=== PATIENT | male | born 1955 | race Caucasian/White ===

== ENCOUNTER 2019-02-28 13:07 | Inpatient (IN) | payer MEDICARE, OTHER, BC ==
[2019-02-28] MEDS: SODIUM CHLORIDE 0.9% 1L BAG IV* (13:39)
[2019-02-28 13:43] LABS: ADD MAN DIFF? NO
[2019-02-28 13:46] LABS: BASOPHIL # 0.1 10^3/ul (0.0-0.1); BASOPHILS % 0.5 % (0.0-2.0); EOSINOPHILS % 0.3 % (0.0-7.0); HEMATOCRIT 45.1 % (42.0-52.0); HEMOGLOBIN 15.2 g/dl (14.0-18.0); LYMPHOCYTES # 1.6 10^3/ul (0.8-2.9); LYMPHOCYTES % 10.8 % (15.0-51.0); MEAN CORPUSCULAR HEMOGLOBIN 29.9 pg (29.0-33.0); MEAN CORPUSCULAR HGB CONC 33.7 g/dl (32.0-37.0); MEAN CORPUSCULAR VOLUME 88.6 fl (82.0-101.0); MEAN PLATELET VOLUME 12.5 fl (7.4-10.4); MONOCYTE # 1.2 10^3/ul (0.3-0.9); MONOCYTES % 7.9 % (0.0-11.0); NEUTROPHIL # 11.7 10^3/ul (1.6-7.5); NEUTROPHILS % 80.2 % (39.0-77.0); PLATELET COUNT 212 10^3/UL (140-415); RED BLOOD COUNT 5.09 10^6/ul (4.70-6.10); RED CELL DISTRIBUTION WIDTH 12.5 % (11.5-14.5)
[2019-02-28 13:46] LABS: WHITE BLOOD COUNT 14.6 10^3/ul (4.8-10.8)
[2019-02-28 14:07] LABS: ALANINE AMINOTRANSFERASE 33 IU/L (13-69); ALBUMIN 4.3 g/dl (3.3-4.9); ALBUMIN/GLOBULIN RATIO 1.48; ALKALINE PHOSPHATASE 78 IU/L (42-121); ANION GAP 11 (5-13); ASPARTATE AMINO TRANSFERASE 23 IU/L (15-46); BILIRUBIN,INDIRECT 1.6 mg/dl (0-1.1); BILIRUBIN,TOTAL 1.6 mg/dl (0.2-1.3); BLOOD UREA NITROGEN 11 mg/dl (7-20); CARBON DIOXIDE 27 mmol/L (21-31); CHLORIDE 97 mmol/L (97-110); CREATININE 0.79 mg/dl (0.61-1.24); Estimated GFR > 60 mL/min (>60); GLUCOSE 176 mg/dl (70-220); POTASSIUM 4.7 mmol/L (3.5-5.1); SODIUM 135 mmol/L (135-144); TOTAL PROTEIN 7.2 g/dl (6.1-8.1)
[2019-02-28 14:15] LABS: INR 1.02; PROTIME 13.5 Sec (11.9-14.9); PT RATIO 1.1
[2019-02-28 14:17] LABS: PARTIAL THROMBOPLASTIN TIME 23.5 Sec (23.0-35.0)
[2019-02-28 14:18] LABS: TROPONIN-I < 0.012 ng/ml (0.000-0.120)
[2019-02-28 15:26] LABS: ADD UMIC NO; UR ASCORBIC ACID NEGATIVE (NEGATIVE); UR BILIRUBIN (Dip) NEGATIVE (NEGATIVE); UR BLOOD (Dip) NEGATIVE (NEGATIVE); UR CLARITY CLEAR (CLEAR); UR COLOR AMBER (YELLOW); UR GLUCOSE (Dip) NEGATIVE (NEGATIVE); UR KETONES (Dip) TRACE mg/dL (NEGATIVE); UR LEUKOCYTE ESTERASE (Dip) NEGATIVE Leu/ul (NEGATIVE); UR NITRITE (Dip) NEGATIVE (NEGATIVE); UR TOTAL PROTEIN (Dip) NEGATIVE (NEGATIVE); UR UROBILINOGEN (Dip) NEGATIVE (NEGATIVE)
[2019-02-28 15:49] LABS: URINE BLOOD (Dip) POC Negative (NEGATIVE); URINE GLUCOSE (Dip) POC Negative (NEGATIVE); URINE KETONES (Dip) POC 1+ (NEGATIVE); URINE LEUKOCYTE EST (Dip) POC Negative (NEGATIVE); URINE NITRITE (Dip) POC Negative (NEGATIVE); URINE TOTAL PROTEIN POC Trace (NEGATIVE)
[2019-02-28] MEDS: SOD CHLORIDE 0.9% 1,000 ML IV (15:54)
[2019-02-28] MEDS: ASPIRIN 325 MG TAB PO (15:55)
[2019-02-28] MEDS: ACETAMINOPHEN 325 MG TAB PO (15:55)
[2019-02-28] MEDS: KETOROLAC 30 MG INJ IV (15:55)
[2019-02-28] MEDS: NORepinephrine 8MG/250 ML (PMX 250 ML IV (16:33)
[2019-02-28] MEDS: PIPER-TAZO 3.375 GM IV (PMX) 100 ML IVPB (16:36)
[2019-02-28] MEDS: VANCOMYCIN 1 GM (PMX) 250 ML IVPB (18:27)
[2019-02-28 19:43] LABS: LACTIC ACID 1.8 mmol/L (0.5-2.0)
[2019-02-28] MEDS ORDERED: BISACODYL (EC) 5 MG TAB PO (23:00)
[2019-02-28] MEDS ORDERED: DOCUSATE SODIUM 100 MG CAP PO (23:00)
[2019-02-28] MEDS ORDERED: VANCOMYCIN IV PER PHARMACY XX (23:00)
[2019-03-01] MEDS: PIPER-TAZO 3.375 GM IV (PMX) 100 ML IVPB ×5 (00:01→23:39)
[2019-03-01] MEDS: SOD CHLORIDE 0.9% 1,000 ML IV ×2 (00:01→22:33)
[2019-03-01] MEDS: HYDROmorphONE 0.5 MG/0.5 ML SYG IV (00:10)
[2019-03-01] MEDS: IOHEXOL 100 ML (00:31)
[2019-03-01] MEDS: SOD CHLORIDE 0.9% 100 ML (00:31)
[2019-03-01 03:00] LABS: CREATINE KINASE 81 IU/L (23-200)
[2019-03-01 03:13] LABS: CK INDEX 0.6; CK-MB 0.52 ng/ml (0.0-2.4); TROPONIN-I < 0.012 ng/ml (0.000-0.120)
[2019-03-01] MEDS: VANCOMYCIN 1.25 GM/NS 250 ML 250 ML IVPB ×2 (04:19→16:30)
[2019-03-01] MEDS: ONDANSETRON 4 MG INJ IV (04:58)
[2019-03-01 05:03] LABS: ADD MAN DIFF? NO
[2019-03-01 05:04] LABS: BASOPHIL # 0.1 10^3/ul (0.0-0.1); BASOPHILS % 0.4 % (0.0-2.0); EOSINOPHILS % 0.1 % (0.0-7.0); HEMATOCRIT 41.7 % (42.0-52.0); HEMOGLOBIN 13.5 g/dl (14.0-18.0); LYMPHOCYTES # 1.2 10^3/ul (0.8-2.9); LYMPHOCYTES % 7.8 % (15.0-51.0); MEAN CORPUSCULAR HEMOGLOBIN 29.5 pg (29.0-33.0); MEAN CORPUSCULAR HGB CONC 32.4 g/dl (32.0-37.0); MEAN CORPUSCULAR VOLUME 91.2 fl (82.0-101.0); MEAN PLATELET VOLUME 12.9 fl (7.4-10.4); MONOCYTE # 1.5 10^3/ul (0.3-0.9); MONOCYTES % 9.9 % (0.0-11.0); NEUTROPHIL # 12.2 10^3/ul (1.6-7.5); NEUTROPHILS % 81.5 % (39.0-77.0); PLATELET COUNT 200 10^3/UL (140-415); RED BLOOD COUNT 4.57 10^6/ul (4.70-6.10); RED CELL DISTRIBUTION WIDTH 13.2 % (11.5-14.5)
[2019-03-01] MEDS: ACETAMINOPHEN 650MG/20.3ML CUP PO (05:05)
[2019-03-01 05:43] LABS: ALANINE AMINOTRANSFERASE 47 IU/L (13-69); ALBUMIN 3.4 g/dl (3.3-4.9); ALBUMIN/GLOBULIN RATIO 1.36; ALKALINE PHOSPHATASE 59 IU/L (42-121); ANION GAP 10 (5-13); ASPARTATE AMINO TRANSFERASE 30 IU/L (15-46); BILIRUBIN,INDIRECT 2.1 mg/dl (0-1.1); BILIRUBIN,TOTAL 2.1 mg/dl (0.2-1.3); BLOOD UREA NITROGEN 14 mg/dl (7-20); CALCIUM 7.8 mg/dl (8.4-10.2); CARBON DIOXIDE 21 mmol/L (21-31); CHLORIDE 106 mmol/L (97-110); CHOL/HDL RATIO 4.5 RATIO; CHOLESTEROL 104 mg/dl (100-200); Estimated GFR > 60 mL/min (>60); GLUCOSE 166 mg/dl (70-220); HDL CHOLESTEROL 23 mg/dl (30-78); LDL CHOLESTEROL,CALCULATED 69 mg/dl; MAGNESIUM 1.7 mg/dl (1.7-2.5); POTASSIUM 4.5 mmol/L (3.5-5.1); SODIUM 137 mmol/L (135-144); TOTAL PROTEIN 5.9 g/dl (6.1-8.1); TRIGLYCERIDES 61 mg/dl (0-149)
[2019-03-01] MEDS ORDERED: METOPROLOL 5 MG INJ (06:20)
[2019-03-01] MEDS ORDERED: PHENYLephrine 20MG IN 250 ML 250 ML (06:21)
[2019-03-01] MEDS: METOPROLOL 5 MG INJ IV (06:26)
[2019-03-01] MEDS: PHENYLephrine 20MG IN 250 ML 250 ML IV (06:27)
[2019-03-01] MEDS: ADENOSINE 6 MG INJ IV (06:30)
[2019-03-01 07:13] LABS: HEMOGLOBIN A1C 6.8 % (0-5.9)
[2019-03-01 08:59] LABS: CREATINE KINASE 88 IU/L (23-200)
[2019-03-01 09:09] LABS: CK INDEX 0.8; CK-MB 0.69 ng/ml (0.0-2.4); TROPONIN-I 0.014 ng/ml (0.000-0.120)
[2019-03-01] MEDS: FAMOTIDINE 20 MG INJ IV ×2 (10:26→21:00)
[2019-03-01] MEDS: morphine 2 MG INJ IV ×2 (10:35→17:23)
[2019-03-02] MEDS: ACETAMINOPHEN 650MG/20.3ML CUP PO (00:10)
[2019-03-02 03:25] LABS: ADD MAN DIFF? NO
[2019-03-02 03:26] LABS: ABNORMAL IP MESSAGE 1; BASOPHIL # 0.1 10^3/ul (0.0-0.1); BASOPHILS % 0.5 % (0.0-2.0); HEMATOCRIT 38.4 % (42.0-52.0); HEMOGLOBIN 12.9 g/dl (14.0-18.0); LYMPHOCYTES # 1.3 10^3/ul (0.8-2.9); LYMPHOCYTES % 8.2 % (15.0-51.0); MEAN CORPUSCULAR HEMOGLOBIN 29.9 pg (29.0-33.0); MEAN CORPUSCULAR HGB CONC 33.6 g/dl (32.0-37.0); MEAN CORPUSCULAR VOLUME 89.1 fl (82.0-101.0); MEAN PLATELET VOLUME 13.1 fl (7.4-10.4); MONOCYTE # 1.8 10^3/ul (0.3-0.9); MONOCYTES % 11.3 % (0.0-11.0); NEUTROPHIL # 12.6 10^3/ul (1.6-7.5); NEUTROPHILS % 79.7 % (39.0-77.0); PLATELET COUNT 241 10^3/UL (140-415); POSITIVE DIFF @See below; RED BLOOD COUNT 4.31 10^6/ul (4.70-6.10); RED CELL DISTRIBUTION WIDTH 13.1 % (11.5-14.5)
[2019-03-02 03:26] LABS: WHITE BLOOD COUNT 15.9 10^3/ul (4.8-10.8)
[2019-03-02 03:44] LABS: ALANINE AMINOTRANSFERASE 62 IU/L (13-69); ALBUMIN 3.4 g/dl (3.3-4.9); ALKALINE PHOSPHATASE 54 IU/L (42-121); ANION GAP 8 (5-13); ASPARTATE AMINO TRANSFERASE 57 IU/L (15-46); BILIRUBIN,INDIRECT 2.1 mg/dl (0-1.1); BILIRUBIN,TOTAL 2.1 mg/dl (0.2-1.3); BLOOD UREA NITROGEN 16 mg/dl (7-20); CARBON DIOXIDE 24 mmol/L (21-31); CHLORIDE 105 mmol/L (97-110); CREATININE 0.72 mg/dl (0.61-1.24); Estimated GFR > 60 mL/min (>60); GLUCOSE 200 mg/dl (70-220); POTASSIUM 4.4 mmol/L (3.5-5.1); SODIUM 137 mmol/L (135-144)
[2019-03-02 03:51] LABS: VANCOMYCIN,TROUGH < 5.0 ug/ml (10.0-20.0)
[2019-03-02] MEDS: VANCOMYCIN 1.25 GM/NS 250 ML 250 ML IVPB (03:58)
[2019-03-02] MEDS: PIPER-TAZO 3.375 GM IV (PMX) 100 ML IVPB ×4 (06:26→23:26)
[2019-03-02] MEDS ORDERED: FENTAnyl 50 MCG/ML VIAL (07:42)
[2019-03-02] MEDS ORDERED: MIDAZOLAM 1 MG/ML 2 ML INJ (07:42)
[2019-03-02] MEDS ORDERED: PROPOFOL 20 ML (07:42)
[2019-03-02] MEDS: SOD CHLORIDE 0.9% 1,000 ML IV ×2 (08:10→17:31)
[2019-03-02] MEDS ORDERED: LIDOCAINE 1% (MDV) 20 ML INJ (08:47)
[2019-03-02] MEDS: SOD CHLORIDE 0.9% 500 ML (08:47)
[2019-03-02] MEDS ORDERED: IOHEXOL 300MG/ML 150 ML BTL (08:47)
[2019-03-02] MEDS ORDERED: HYDROmorphONE 0.5 MG/0.5 ML SYG IV ×2 (10:00)
[2019-03-02] MEDS ORDERED: FENTAnyl 50 MCG/ML VIAL IV ×3 (10:00)
[2019-03-02] MEDS: VANCOMYCIN 1.5 GM/NS 250 ML 250 ML IVPB (11:25)
[2019-03-02] MEDS: FAMOTIDINE 20 MG INJ IV ×2 (11:25→20:19)
[2019-03-02] MEDS ORDERED: DEXTROSE 50% 50 ML SYRINGE IV ×2 (13:00)
[2019-03-02] MEDS ORDERED: GLUCAGON 1 MG INJ IM (13:00)
[2019-03-02] MEDS ORDERED: GLUCOSE GEL 15 GRAM TUBE PO ×2 (13:00)
[2019-03-02] MEDS ORDERED: GLUCOSE GEL 15 GRAM TUBE BUCCAL (13:00)
[2019-03-02] MEDS: HYDROmorphONE 0.5 MG/0.5 ML SYG IV (13:33)
[2019-03-02] MEDS: INSULIN ASPART [NOVOLOG] 3 ML PEN SC ×2 (17:28→20:20)
[2019-03-02] MEDS: METOPROLOL 25 MG TAB PO (20:19)
[2019-03-03] MEDS: PIPER-TAZO 3.375 GM IV (PMX) 100 ML IVPB (05:03)
[2019-03-03 05:59] LABS: ADD MAN DIFF? NO
[2019-03-03 06:04] LABS: ABNORMAL IP MESSAGE 1; BASOPHIL # 0.1 10^3/ul (0.0-0.1); BASOPHILS % 0.5 % (0.0-2.0); EOSINOPHILS % 0.2 % (0.0-7.0); HEMATOCRIT 36.1 % (42.0-52.0); HEMOGLOBIN 12.1 g/dl (14.0-18.0); LYMPHOCYTES # 1.2 10^3/ul (0.8-2.9); LYMPHOCYTES % 9.3 % (15.0-51.0); MEAN CORPUSCULAR HGB CONC 33.5 g/dl (32.0-37.0); MEAN CORPUSCULAR VOLUME 89.6 fl (82.0-101.0); MEAN PLATELET VOLUME 13.5 fl (7.4-10.4); MONOCYTE # 1.4 10^3/ul (0.3-0.9); MONOCYTES % 10.9 % (0.0-11.0); NEUTROPHIL # 10.2 10^3/ul (1.6-7.5); NEUTROPHILS % 78.6 % (39.0-77.0); PLATELET COUNT 220 10^3/UL (140-415); POSITIVE DIFF @See below; RED BLOOD COUNT 4.03 10^6/ul (4.70-6.10); RED CELL DISTRIBUTION WIDTH 13.1 % (11.5-14.5)
[2019-03-03 06:04] LABS: WHITE BLOOD COUNT 12.9 10^3/ul (4.8-10.8)
[2019-03-03 06:36] LABS: ALANINE AMINOTRANSFERASE 75 IU/L (13-69); ALBUMIN 3.1 g/dl (3.3-4.9); ALBUMIN/GLOBULIN RATIO 1.03; ALKALINE PHOSPHATASE 57 IU/L (42-121); ANION GAP 6 (5-13); ASPARTATE AMINO TRANSFERASE 52 IU/L (15-46); BILIRUBIN,INDIRECT 1.6 mg/dl (0-1.1); BILIRUBIN,TOTAL 1.6 mg/dl (0.2-1.3); BLOOD UREA NITROGEN 14 mg/dl (7-20); CALCIUM 7.8 mg/dl (8.4-10.2); CARBON DIOXIDE 25 mmol/L (21-31); CHLORIDE 103 mmol/L (97-110); CREATININE 0.71 mg/dl (0.61-1.24); Estimated GFR > 60 mL/min (>60); GLUCOSE 137 mg/dl (70-220); POTASSIUM 3.5 mmol/L (3.5-5.1); SODIUM 134 mmol/L (135-144); TOTAL PROTEIN 6.1 g/dl (6.1-8.1)
[2019-03-03] MEDS: INSULIN ASPART [NOVOLOG] 3 ML PEN SC ×4 (08:00→21:00)
[2019-03-03] MEDS: POTASSIUM CHLORIDE (SR) 20 MEQ TAB PO (10:06)
[2019-03-03] MEDS: METOPROLOL 25 MG TAB PO ×2 (10:07→21:46)
[2019-03-03] MEDS: FAMOTIDINE 20 MG INJ IV (10:09)
[2019-03-03] MEDS: morphine 2 MG INJ IV (10:32)
[2019-03-03] MEDS ORDERED: CALCIUM CARBONATE 500 MG CHEW TAB PO (12:30)
[2019-03-03] MEDS: CIPROFLOXACIN 400MG/D5W 200 ML IVPB ×2 (13:05→20:37)
[2019-03-03] MEDS: metroNIDAZOLE 500 MG/NS (PMX) 100 ML IVPB ×3 (15:06→23:48)
[2019-03-03] MEDS: FUROSEMIDE 40 MG INJ IV (16:00)
[2019-03-03] MEDS: LACTOBACILLUS RHAMNOSUS CAP PO (17:29)
[2019-03-03] MEDS: ADENOSINE 6 MG INJ IV (19:49)
[2019-03-03] MEDS ORDERED: METOPROLOL 5 MG INJ (20:02)
[2019-03-03] MEDS: ACETAMINOPHEN 650MG/20.3ML CUP PO (20:04)
[2019-03-03] MEDS: METOPROLOL 5 MG INJ IV (20:05)
[2019-03-03] MEDS: MAGNESIUM SULFATE 2 GM/50 ML 50 ML IVPB (21:44)
[2019-03-04] MEDS: metroNIDAZOLE 500 MG/NS (PMX) 100 ML IVPB ×4 (05:32→23:08)
[2019-03-04] MEDS: PANTOPRAZOLE (EC) 40 MG TAB PO (05:32)
[2019-03-04 05:40] LABS: ADD MAN DIFF? NO
[2019-03-04 05:47] LABS: BASOPHIL # 0.1 10^3/ul (0.0-0.1); BASOPHILS % 0.7 % (0.0-2.0); EOSINOPHILS # 0.1 10^3/ul (0.0-0.5); EOSINOPHILS % 0.7 % (0.0-7.0); HEMATOCRIT 35.8 % (42.0-52.0); HEMOGLOBIN 12.2 g/dl (14.0-18.0); LYMPHOCYTES % 10.5 % (15.0-51.0); MEAN CORPUSCULAR HEMOGLOBIN 30.2 pg (29.0-33.0); MEAN CORPUSCULAR HGB CONC 34.1 g/dl (32.0-37.0); MEAN CORPUSCULAR VOLUME 88.6 fl (82.0-101.0); MEAN PLATELET VOLUME 12.8 fl (7.4-10.4); MONOCYTE # 1.1 10^3/ul (0.3-0.9); MONOCYTES % 11.7 % (0.0-11.0); NEUTROPHIL # 7.2 10^3/ul (1.6-7.5); NEUTROPHILS % 76.1 % (39.0-77.0); PLATELET COUNT 225 10^3/UL (140-415); RED BLOOD COUNT 4.04 10^6/ul (4.70-6.10); RED CELL DISTRIBUTION WIDTH 12.7 % (11.5-14.5)
[2019-03-04 05:47] LABS: WHITE BLOOD COUNT 9.5 10^3/ul (4.8-10.8)
[2019-03-04 06:54] LABS: ALANINE AMINOTRANSFERASE 79 IU/L (13-69); ALBUMIN/GLOBULIN RATIO 1.07; ALKALINE PHOSPHATASE 61 IU/L (42-121); ANION GAP 7 (5-13); ASPARTATE AMINO TRANSFERASE 45 IU/L (15-46); BILIRUBIN,INDIRECT 1.2 mg/dl (0-1.1); BILIRUBIN,TOTAL 1.2 mg/dl (0.2-1.3); BLOOD UREA NITROGEN 10 mg/dl (7-20); CALCIUM 8.1 mg/dl (8.4-10.2); CARBON DIOXIDE 28 mmol/L (21-31); CHLORIDE 104 mmol/L (97-110); CREATININE 0.59 mg/dl (0.61-1.24); Estimated GFR > 60 mL/min (>60); GLUCOSE 132 mg/dl (70-220); POTASSIUM 4.2 mmol/L (3.5-5.1); SODIUM 139 mmol/L (135-144); TOTAL PROTEIN 5.8 g/dl (6.1-8.1)
[2019-03-04 06:56] LABS: ANION GAP 7 (5-13); BLOOD UREA NITROGEN 10 mg/dl (7-20); CALCIUM 7.9 mg/dl (8.4-10.2); CARBON DIOXIDE 27 mmol/L (21-31); CHLORIDE 103 mmol/L (97-110); CREATININE 0.57 mg/dl (0.61-1.24); Estimated GFR > 60 mL/min (>60); GLUCOSE 136 mg/dl (70-220); MAGNESIUM 2.4 mg/dl (1.7-2.5); POTASSIUM 3.7 mmol/L (3.5-5.1); SODIUM 137 mmol/L (135-144)
[2019-03-04] MEDS: INSULIN ASPART [NOVOLOG] 3 ML PEN SC ×4 (07:56→20:55)
[2019-03-04] MEDS: LACTOBACILLUS RHAMNOSUS CAP PO ×3 (08:19→17:35)
[2019-03-04] MEDS: METOPROLOL 25 MG TAB PO ×2 (08:20→20:52)
[2019-03-04] MEDS: CIPROFLOXACIN 400MG/D5W 200 ML IVPB ×2 (08:20→20:52)
[2019-03-04 10:50] LABS: ADD MAN DIFF? NO
[2019-03-04 11:06] LABS: WHITE BLOOD COUNT 8.5 10^3/ul (4.8-10.8)
[2019-03-04 11:06] LABS: ABNORMAL IP MESSAGE 1; BASOPHIL # 0.1 10^3/ul (0.0-0.1); BASOPHILS % 0.6 % (0.0-2.0); EOSINOPHILS # 0.1 10^3/ul (0.0-0.5); EOSINOPHILS % 0.7 % (0.0-7.0); HEMATOCRIT 33.6 % (42.0-52.0); HEMOGLOBIN 11.5 g/dl (14.0-18.0); LYMPHOCYTES # 0.7 10^3/ul (0.8-2.9); LYMPHOCYTES % 8.3 % (15.0-51.0); MEAN CORPUSCULAR HEMOGLOBIN 30.1 pg (29.0-33.0); MEAN CORPUSCULAR HGB CONC 34.2 g/dl (32.0-37.0); MEAN PLATELET VOLUME 13.1 fl (7.4-10.4); MONOCYTES % 11.4 % (0.0-11.0); NEUTROPHIL # 6.7 10^3/ul (1.6-7.5); NEUTROPHILS % 78.5 % (39.0-77.0); PLATELET COUNT 227 10^3/UL (140-415); POSITIVE DIFF @See below; RED BLOOD COUNT 3.82 10^6/ul (4.70-6.10); RED CELL DISTRIBUTION WIDTH 12.8 % (11.5-14.5)
[2019-03-04 16:58] LABS: ADD MAN DIFF? NO
[2019-03-04 16:59] LABS: BASOPHIL # 0.1 10^3/ul (0.0-0.1); BASOPHILS % 0.7 % (0.0-2.0); EOSINOPHILS # 0.1 10^3/ul (0.0-0.5); EOSINOPHILS % 0.6 % (0.0-7.0); HEMATOCRIT 36.5 % (42.0-52.0); HEMOGLOBIN 12.2 g/dl (14.0-18.0); LYMPHOCYTES # 0.9 10^3/ul (0.8-2.9); LYMPHOCYTES % 10.3 % (15.0-51.0); MEAN CORPUSCULAR HEMOGLOBIN 29.5 pg (29.0-33.0); MEAN CORPUSCULAR HGB CONC 33.4 g/dl (32.0-37.0); MEAN CORPUSCULAR VOLUME 88.2 fl (82.0-101.0); MEAN PLATELET VOLUME 12.5 fl (7.4-10.4); MONOCYTE # 0.9 10^3/ul (0.3-0.9); MONOCYTES % 10.2 % (0.0-11.0); NEUTROPHILS % 77.9 % (39.0-77.0); PLATELET COUNT 234 10^3/UL (140-415); RED BLOOD COUNT 4.14 10^6/ul (4.70-6.10); RED CELL DISTRIBUTION WIDTH 12.7 % (11.5-14.5)
[2019-03-05] MEDS: metroNIDAZOLE 500 MG/NS (PMX) 100 ML IVPB (05:46)
[2019-03-05] MEDS: PANTOPRAZOLE (EC) 40 MG TAB PO (05:46)
[2019-03-05 06:25] LABS: ADD MAN DIFF? NO
[2019-03-05 06:37] LABS: BASOPHIL # 0.1 10^3/ul (0.0-0.1); BASOPHILS % 0.7 % (0.0-2.0); EOSINOPHILS # 0.1 10^3/ul (0.0-0.5); EOSINOPHILS % 1.4 % (0.0-7.0); HEMATOCRIT 35.9 % (42.0-52.0); HEMOGLOBIN 12.3 g/dl (14.0-18.0); LYMPHOCYTES % 11.4 % (15.0-51.0); MEAN CORPUSCULAR HEMOGLOBIN 29.8 pg (29.0-33.0); MEAN CORPUSCULAR HGB CONC 34.3 g/dl (32.0-37.0); MEAN CORPUSCULAR VOLUME 86.9 fl (82.0-101.0); MEAN PLATELET VOLUME 12.9 fl (7.4-10.4); MONOCYTES % 11.8 % (0.0-11.0); NEUTROPHIL # 6.2 10^3/ul (1.6-7.5); NEUTROPHILS % 74.3 % (39.0-77.0); PLATELET COUNT 256 10^3/UL (140-415); RED BLOOD COUNT 4.13 10^6/ul (4.70-6.10); RED CELL DISTRIBUTION WIDTH 12.5 % (11.5-14.5)
[2019-03-05 06:37] LABS: WHITE BLOOD COUNT 8.3 10^3/ul (4.8-10.8)
[2019-03-05 07:04] LABS: MAGNESIUM 1.9 mg/dl (1.7-2.5)
[2019-03-05 07:17] LABS: ALANINE AMINOTRANSFERASE 64 IU/L (13-69); ALKALINE PHOSPHATASE 63 IU/L (42-121); ANION GAP 8 (5-13); ASPARTATE AMINO TRANSFERASE 43 IU/L (15-46); BILIRUBIN,INDIRECT 0.9 mg/dl (0-1.1); BILIRUBIN,TOTAL 0.9 mg/dl (0.2-1.3); BLOOD UREA NITROGEN 8 mg/dl (7-20); CARBON DIOXIDE 26 mmol/L (21-31); CHLORIDE 103 mmol/L (97-110); CREATININE 0.58 mg/dl (0.61-1.24); Estimated GFR > 60 mL/min (>60); GLUCOSE 135 mg/dl (70-220); POTASSIUM 3.1 mmol/L (3.5-5.1); SODIUM 137 mmol/L (135-144)
[2019-03-05 07:38] LABS: HEPATITIS B SURFACE ANTIGEN NEGATIVE (NEGATIVE)
[2019-03-05 07:55] LABS: HEPATITIS C VIRAL ANTIBODY NEGATIVE (NEGATIVE)
[2019-03-05] MEDS: INSULIN ASPART [NOVOLOG] 3 ML PEN SC ×2 (08:00→11:42)
[2019-03-05] MEDS: CIPROFLOXACIN 400MG/D5W 200 ML IVPB (08:36)
[2019-03-05] MEDS: METOPROLOL 25 MG TAB PO (08:37)
[2019-03-05] MEDS: LACTOBACILLUS RHAMNOSUS CAP PO ×2 (08:37→11:37)
[2019-03-05] MEDS: POTASSIUM CHLORIDE (SR) 20 MEQ TAB PO (10:21)
[2019-03-05] MEDS: ACETAMINOPHEN 650MG/20.3ML CUP PO (11:47)
[2019-03-05] MEDS: metroNIDAZOLE 500 MG TAB PO (13:42)
[2019-03-05] MEDS ORDERED: CIPROFLOXACIN 500 MG TAB (13:47)
[2019-03-05] MEDS: CIPROFLOXACIN 500 MG TAB PO (13:51)
== END 2019-03-05 16:28 | disposition home health service (06) | DRG 871 ==
LOC: E/R 13:07 → 6WM 03-02 18:40 → ICU 19:47
PROVIDERS: Family Medicine
PROC: 0F9430Z Drainage of Gallbladder with Drainage Device, Percutaneous Approach (ICD-10-PCS; principal; 2019-03-02)
DX: A41.9 Sepsis, unspecified organism (principal); R65.21 Severe sepsis with septic shock; K81.0 Acute cholecystitis; I31.3 Pericardial effusion (noninflammatory); I47.1 Supraventricular tachycardia; M75.92 Shoulder lesion, unspecified, left shoulder; L40.50 Arthropathic psoriasis, unspecified; M06.9 Rheumatoid arthritis, unspecified; E11.9 Type 2 diabetes mellitus without complications; I10 Essential (primary) hypertension; R14.0 Abdominal distension (gaseous); R19.7 Diarrhea, unspecified; Q63.1 Lobulated, fused and horseshoe kidney
CPT/HCPCS: 36415; 71045; 71275; 73030-RT; 73050; 74018; 74177; 75984; 76705; 76937; 76942; 80048; 80053; 80061; 80202; 81003; 82550; 82553; 82962; 83036; 83605; 83735; 84443; 84484; 85025; 85610; 85730; 86803; 87040-91; 87081; 87086; 87340; 93005; 93306; 93308; 96365; 96375; 99285-25

== ENCOUNTER 2019-03-11 15:51 | Inpatient (IN) | payer MEDICARE, OTHER ==
[2019-03-11 17:07] LABS: ADD MAN DIFF? NO
[2019-03-11 17:08] LABS: BASOPHIL # 0.1 10^3/ul (0.0-0.1); BASOPHILS % 0.5 % (0.0-2.0); EOSINOPHILS # 0.1 10^3/ul (0.0-0.5); EOSINOPHILS % 0.4 % (0.0-7.0); HEMATOCRIT 39.7 % (42.0-52.0); HEMOGLOBIN 13.6 g/dl (14.0-18.0); LYMPHOCYTES # 1.4 10^3/ul (0.8-2.9); LYMPHOCYTES % 9.6 % (15.0-51.0); MEAN CORPUSCULAR HEMOGLOBIN 29.6 pg (29.0-33.0); MEAN CORPUSCULAR HGB CONC 34.3 g/dl (32.0-37.0); MEAN CORPUSCULAR VOLUME 86.3 fl (82.0-101.0); MEAN PLATELET VOLUME 12.1 fl (7.4-10.4); MONOCYTE # 1.3 10^3/ul (0.3-0.9); MONOCYTES % 8.7 % (0.0-11.0); NEUTROPHIL # 11.8 10^3/ul (1.6-7.5); NEUTROPHILS % 80.5 % (39.0-77.0); PLATELET COUNT 274 10^3/UL (140-415); RED CELL DISTRIBUTION WIDTH 12.5 % (11.5-14.5)
[2019-03-11 17:08] LABS: WHITE BLOOD COUNT 14.6 10^3/ul (4.8-10.8)
[2019-03-11] MEDS: ACETAMINOPHEN 325 MG TAB PO ×2 (17:09→23:01)
[2019-03-11] MEDS: SODIUM CHLORIDE 0.9% 1L BAG IV* (17:10)
[2019-03-11] MEDS: CEFTRIAXONE 1 GM/50 ML (PMX) 50 ML IVPB (17:10)
[2019-03-11] MEDS: PIPER-TAZO 3.375 GM IV (PMX) 100 ML IVPB (17:24)
[2019-03-11 17:26] LABS: ALANINE AMINOTRANSFERASE 46 IU/L (13-69); ALBUMIN 4.1 g/dl (3.3-4.9); ALBUMIN/GLOBULIN RATIO 1.24; ALKALINE PHOSPHATASE 97 IU/L (42-121); ANION GAP 12 (5-13); ASPARTATE AMINO TRANSFERASE 33 IU/L (15-46); BILIRUBIN,INDIRECT 0.6 mg/dl (0-1.1); BILIRUBIN,TOTAL 0.6 mg/dl (0.2-1.3); BLOOD UREA NITROGEN 10 mg/dl (7-20); CALCIUM 8.7 mg/dl (8.4-10.2); CARBON DIOXIDE 23 mmol/L (21-31); CHLORIDE 96 mmol/L (97-110); CREATININE 0.63 mg/dl (0.61-1.24); Estimated GFR > 60 mL/min (>60); GLUCOSE 160 mg/dl (70-220); POTASSIUM 4.5 mmol/L (3.5-5.1); SODIUM 131 mmol/L (135-144); TOTAL PROTEIN 7.4 g/dl (6.1-8.1)
[2019-03-11 17:28] LABS: INR 0.98; PROTIME 13.1 Sec (11.9-14.9)
[2019-03-11 17:29] LABS: PARTIAL THROMBOPLASTIN TIME 30.3 Sec (23.0-35.0)
[2019-03-11 17:34] LABS: ADD UMIC YES; UR ASCORBIC ACID NEGATIVE (NEGATIVE); UR BILIRUBIN (Dip) NEGATIVE (NEGATIVE); UR BLOOD (Dip) NEGATIVE (NEGATIVE); UR CLARITY CLEAR (CLEAR); UR COLOR AMBER (YELLOW); UR GLUCOSE (Dip) NEGATIVE (NEGATIVE); UR KETONES (Dip) NEGATIVE (NEGATIVE); UR LEUKOCYTE ESTERASE (Dip) TRACE Leu/ul (NEGATIVE); UR MUCUS MANY /HPF (NONE SEEN); UR NITRITE (Dip) NEGATIVE (NEGATIVE); UR RBC 1 /HPF (0-5); UR SPECIFIC GRAVITY (Dip) 1.023 (1.003-1.030); UR TOTAL PROTEIN (Dip) NEGATIVE (NEGATIVE); UR UROBILINOGEN (Dip) NEGATIVE (NEGATIVE); UR WBC 1 /HPF (0-5)
[2019-03-11 17:37] LABS: TROPONIN-I < 0.012 ng/ml (0.000-0.120)
[2019-03-11] MEDS ORDERED: SOD CHLORIDE 0.9% 1,000 ML IV (17:57)
[2019-03-11] MEDS ORDERED: ACETAMINOPHEN 325 MG TAB PO (18:00)
[2019-03-11] MEDS ORDERED: DOCUSATE SODIUM 100 MG CAP PO (18:00)
[2019-03-11] MEDS ORDERED: ALBUTEROL/IPRATROPIUM (NEB) 3 ML AMP HHN (18:00)
[2019-03-11] MEDS ORDERED: NACL 0.9% 3 ML SYG IV (18:00)
[2019-03-11] MEDS ORDERED: hydrALAzine 20 MG INJ IV (18:00)
[2019-03-11] MEDS ORDERED: ETANERCEPT XX (18:00)
[2019-03-11] MEDS ORDERED: MAGNESIUM HYDROXIDE 30ML CUP PO (18:00)
[2019-03-11] MEDS ORDERED: NITROGLYCERIN (SL) 0.4 MG TAB SL (18:00)
[2019-03-11] MEDS ORDERED: ONDANSETRON 4 MG INJ IV ×2 (18:00)
[2019-03-11] MEDS ORDERED: LORAZEPAM 2 MG INJ IV (18:00)
[2019-03-11] MEDS ORDERED: VANCOMYCIN IV PER PHARMACY XX (18:00)
[2019-03-11] MEDS: IOHEXOL 300MG/ML 30 ML BTL (18:03)
[2019-03-11] MEDS: SOD CHLORIDE 0.9% 100 ML (18:03)
[2019-03-11] MEDS: IOHEXOL 0 ML (18:03)
[2019-03-11 19:16] LABS: FREE T4 (FREE THYROXINE) 1.44 ng/dl (0.78-2.44)
[2019-03-11] MEDS ORDERED: GLUCOSE GEL 15 GRAM TUBE PO ×2 (19:30)
[2019-03-11] MEDS ORDERED: GLUCOSE GEL 15 GRAM TUBE BUCCAL (19:30)
[2019-03-11] MEDS ORDERED: DEXTROSE 50% 50 ML SYRINGE IV ×2 (19:30)
[2019-03-11] MEDS ORDERED: GLUCAGON 1 MG INJ IM (19:30)
[2019-03-11 20:02] LABS: LACTIC ACID 1.3 mmol/L (0.5-2.0)
[2019-03-11] MEDS: INSULIN ASPART [NOVOLOG] 3 ML PEN SC (21:00)
[2019-03-11] MEDS: METOPROLOL 25 MG TAB PO (21:00)
[2019-03-11] MEDS: CEFEPIME 2GM/50 ML (PMX) 50 ML IVPB (21:05)
[2019-03-11] MEDS: SOD CHLORIDE 0.9% 1,000 ML IV (21:06)
[2019-03-11 21:41] LABS: LACTIC ACID 1.9 mmol/L (0.5-2.0)
[2019-03-11] MEDS: VANCOMYCIN 1.5 GM/NS 250 ML 250 ML IVPB (22:09)
[2019-03-11 23:53] LABS: LACTIC ACID 1.6 mmol/L (0.5-2.0)
[2019-03-12] MEDS: INSULIN ASPART [NOVOLOG] 3 ML PEN SC ×6 (01:00→20:26)
[2019-03-12 01:36] LABS: LACTIC ACID 0.9 mmol/L (0.5-2.0)
[2019-03-12] MEDS: SOD CHLORIDE 0.9% 1,000 ML IV ×2 (03:59→07:51)
[2019-03-12] MEDS: CEFEPIME 2GM/50 ML (PMX) 50 ML IVPB ×2 (06:08→15:59)
[2019-03-12] MEDS: ACETAMINOPHEN 325 MG TAB PO ×2 (06:16→20:18)
[2019-03-12] MEDS: NITROGLYCERIN (SL) 0.4 MG TAB SL (06:47)
[2019-03-12] MEDS: morphine 2 MG INJ IV ×2 (07:06→15:04)
[2019-03-12] MEDS: SOD CHLORIDE 0.9% 500 ML IV (07:38)
[2019-03-12] MEDS: FISH OIL 1,000 MG CAP PO (08:09)
[2019-03-12] MEDS: METOPROLOL 25 MG TAB PO ×2 (08:09→20:19)
[2019-03-12] MEDS: VANCOMYCIN 1.25 GM/NS 250 ML 250 ML IVPB ×2 (08:44→20:18)
[2019-03-12 08:50] LABS: ADD MAN DIFF? NO
[2019-03-12 08:54] LABS: BASOPHIL # 0.1 10^3/ul (0.0-0.1); BASOPHILS % 0.5 % (0.0-2.0); EOSINOPHILS % 0.3 % (0.0-7.0); HEMATOCRIT 39.5 % (42.0-52.0); HEMOGLOBIN 13.1 g/dl (14.0-18.0); LYMPHOCYTES % 6.8 % (15.0-51.0); MEAN CORPUSCULAR HEMOGLOBIN 29.1 pg (29.0-33.0); MEAN CORPUSCULAR HGB CONC 33.2 g/dl (32.0-37.0); MEAN CORPUSCULAR VOLUME 87.8 fl (82.0-101.0); MEAN PLATELET VOLUME 12.2 fl (7.4-10.4); MONOCYTE # 1.4 10^3/ul (0.3-0.9); MONOCYTES % 8.9 % (0.0-11.0); NEUTROPHIL # 12.7 10^3/ul (1.6-7.5); NEUTROPHILS % 83.1 % (39.0-77.0); PLATELET COUNT 251 10^3/UL (140-415); RED CELL DISTRIBUTION WIDTH 12.6 % (11.5-14.5)
[2019-03-12 08:54] LABS: WHITE BLOOD COUNT 15.2 10^3/ul (4.8-10.8)
[2019-03-12 09:37] LABS: ANION GAP 10 (5-13); BLOOD UREA NITROGEN 7 mg/dl (7-20); CALCIUM 7.9 mg/dl (8.4-10.2); CARBON DIOXIDE 22 mmol/L (21-31); CHLORIDE 100 mmol/L (97-110); CREATININE 0.63 mg/dl (0.61-1.24); Estimated GFR > 60 mL/min (>60); GLUCOSE 126 mg/dl (70-220); MAGNESIUM 1.7 mg/dl (1.7-2.5); PHOSPHORUS 3.1 mg/dl (2.5-4.9); POTASSIUM 4.1 mmol/L (3.5-5.1); SODIUM 132 mmol/L (135-144)
[2019-03-12 09:40] LABS: CHOLESTEROL 79 mg/dl (100-200)
[2019-03-12 09:40] LABS: CHOL/HDL RATIO 3.7 RATIO; HDL CHOLESTEROL 21 mg/dl (30-78); LDL CHOLESTEROL,CALCULATED 46 mg/dl; TRIGLYCERIDES 61 mg/dl (0-149)
[2019-03-12 09:43] LABS: TROPONIN-I < 0.012 ng/ml (0.000-0.120)
[2019-03-12] MEDS ORDERED: BUPIVACAINE 0.5%/EPI (SDV) 30 ML INJ (12:58)
[2019-03-12] MEDS ORDERED: LIDOCAINE 1% (MPF) 30 ML INJ (12:58)
[2019-03-12] MEDS ORDERED: CEFAZOLIN 1 GM INJ (13:23)
[2019-03-12] MEDS ORDERED: MIDAZOLAM 1 MG/ML 2 ML INJ (13:23)
[2019-03-12] MEDS ORDERED: ROCURONIUM 50 MG INJ (13:23)
[2019-03-12] MEDS ORDERED: PROPOFOL 20 ML (13:23)
[2019-03-12] MEDS ORDERED: FENTAnyl 50 MCG/ML VIAL (13:23)
[2019-03-12] MEDS ORDERED: ROPIVACAINE 0.5 % 30 ML VIAL (13:25)
[2019-03-12] MEDS ORDERED: PIPER-TAZO 3.375 GM IV (PMX) 100 ML (13:41)
[2019-03-12] MEDS ORDERED: HETASTARCH 6% NACL 500 ML (13:57)
[2019-03-12] MEDS: BUPIVACAINE 0.25%/EPI (SDV) 30 ML INJ (13:58)
[2019-03-12] MEDS ORDERED: SUGAMMADEX SODIUM 200 MG/2 ML VIAL IV (14:14)
[2019-03-12] MEDS ORDERED: METOCLOPRAMIDE 10 MG INJ IV (14:30)
[2019-03-12] MEDS ORDERED: DIPHENHYDRAMINE 50 MG INJ IV (14:30)
[2019-03-12] MEDS ORDERED: EPHEDrine 25 MG/5 ML SYG IV (14:30)
[2019-03-12] MEDS ORDERED: ALBUMIN HUMAN 5% 250 ML IV (14:30)
[2019-03-12] MEDS ORDERED: LABETALOL HCL 20MG INJ IV (14:30)
[2019-03-12] MEDS ORDERED: HYDROmorphONE 1 MG/5 ML IV SYRINGE IV ×3 (14:30)
[2019-03-12] MEDS ORDERED: FENTAnyl 50 MCG/ML VIAL IV ×3 (14:30)
[2019-03-12] MEDS ORDERED: hydrALAzine 20 MG INJ IV (14:30)
[2019-03-12] MEDS ORDERED: OXYCODONE/ACETAMINOPHEN (5/325) TAB PO (14:30)
[2019-03-12] MEDS ORDERED: MEPERIDINE 25 MG INJ IV (14:30)
[2019-03-12] MEDS ORDERED: ONDANSETRON 4 MG INJ IV (14:30)
[2019-03-12] MEDS ORDERED: PHENYLephrine (100 MCG/ML) 10ML SYG (15:08)
[2019-03-12] MEDS: IPRATROPIUM (NEB) 0.5 MG/2.5 ML AMP HHN (21:47)
[2019-03-12] MEDS: LEVALBUTEROL (NEB) 1.25 MG/0.5 ML AMP HHN (21:47)
[2019-03-13] MEDS: CEFEPIME 2GM/50 ML (PMX) 50 ML IVPB ×3 (01:50→13:30)
[2019-03-13] MEDS: SOD CHLORIDE 0.9% 1,000 ML IV ×3 (01:53→18:46)
[2019-03-13] MEDS: morphine 2 MG INJ IV (06:13)
[2019-03-13 07:24] LABS: ADD MAN DIFF? NO
[2019-03-13] MEDS: INSULIN ASPART [NOVOLOG] 3 ML PEN SC ×4 (07:25→21:50)
[2019-03-13 07:33] LABS: WHITE BLOOD COUNT 12.1 10^3/ul (4.8-10.8)
[2019-03-13 07:33] LABS: BASOPHIL # 0.1 10^3/ul (0.0-0.1); BASOPHILS % 0.5 % (0.0-2.0); EOSINOPHILS # 0.1 10^3/ul (0.0-0.5); EOSINOPHILS % 0.5 % (0.0-7.0); HEMATOCRIT 36.3 % (42.0-52.0); LYMPHOCYTES # 1.1 10^3/ul (0.8-2.9); LYMPHOCYTES % 9.3 % (15.0-51.0); MEAN CORPUSCULAR HEMOGLOBIN 29.3 pg (29.0-33.0); MEAN CORPUSCULAR HGB CONC 33.1 g/dl (32.0-37.0); MEAN CORPUSCULAR VOLUME 88.8 fl (82.0-101.0); MEAN PLATELET VOLUME 12.4 fl (7.4-10.4); MONOCYTE # 1.1 10^3/ul (0.3-0.9); MONOCYTES % 8.9 % (0.0-11.0); NEUTROPHIL # 9.7 10^3/ul (1.6-7.5); NEUTROPHILS % 80.5 % (39.0-77.0); PLATELET COUNT 225 10^3/UL (140-415); RED BLOOD COUNT 4.09 10^6/ul (4.70-6.10); RED CELL DISTRIBUTION WIDTH 12.9 % (11.5-14.5)
[2019-03-13 07:57] LABS: CREATININE 0.57 mg/dl (0.61-1.24)
[2019-03-13 07:57] LABS: BLOOD UREA NITROGEN 7 mg/dl (7-20)
[2019-03-13 07:58] LABS: ANION GAP 6 (5-13); BLOOD UREA NITROGEN 8 mg/dl (7-20); CALCIUM 7.6 mg/dl (8.4-10.2); CARBON DIOXIDE 24 mmol/L (21-31); CHLORIDE 104 mmol/L (97-110); CREATININE 0.62 mg/dl (0.61-1.24); Estimated GFR > 60 mL/min (>60); GLUCOSE 120 mg/dl (70-220); POTASSIUM 4.3 mmol/L (3.5-5.1); SODIUM 134 mmol/L (135-144)
[2019-03-13] MEDS: METOPROLOL 25 MG TAB PO ×2 (08:12→20:23)
[2019-03-13] MEDS: FISH OIL 1,000 MG CAP PO (08:12)
[2019-03-13 08:14] LABS: VANCOMYCIN,TROUGH 9.2 ug/ml (10.0-20.0)
[2019-03-13] MEDS: VANCOMYCIN 1.25 GM/NS 250 ML 250 ML IVPB ×2 (08:55→21:46)
[2019-03-13] MEDS: HYDROCODONE/APAP (5/325) TAB PO (20:24)
[2019-03-13] MEDS: VANCOMYCIN 1.5 GM/NS 250 ML 250 ML IVPB (21:55)
[2019-03-14] MEDS: CEFEPIME 2GM/50 ML (PMX) 50 ML IVPB ×4 (00:10→23:45)
[2019-03-14] MEDS: SOD CHLORIDE 0.9% 1,000 ML IV (05:35)
[2019-03-14] MEDS ORDERED: DILTIAZEM 25 MG INJ (05:58)
[2019-03-14] MEDS: DILTIAZEM 25 MG INJ IV (06:17)
[2019-03-14 07:17] LABS: ADD MAN DIFF? NO
[2019-03-14] MEDS: INSULIN ASPART [NOVOLOG] 3 ML PEN SC ×4 (07:25→20:36)
[2019-03-14 07:31] LABS: WHITE BLOOD COUNT 14.2 10^3/ul (4.8-10.8)
[2019-03-14 07:31] LABS: BASOPHIL # 0.1 10^3/ul (0.0-0.1); BASOPHILS % 0.4 % (0.0-2.0); EOSINOPHILS # 0.1 10^3/ul (0.0-0.5); EOSINOPHILS % 0.8 % (0.0-7.0); HEMATOCRIT 38.4 % (42.0-52.0); HEMOGLOBIN 12.5 g/dl (14.0-18.0); LYMPHOCYTES # 1.3 10^3/ul (0.8-2.9); MEAN CORPUSCULAR HEMOGLOBIN 29.3 pg (29.0-33.0); MEAN CORPUSCULAR HGB CONC 32.6 g/dl (32.0-37.0); MEAN CORPUSCULAR VOLUME 89.9 fl (82.0-101.0); MEAN PLATELET VOLUME 12.4 fl (7.4-10.4); MONOCYTES % 6.8 % (0.0-11.0); NEUTROPHIL # 11.7 10^3/ul (1.6-7.5); NEUTROPHILS % 82.6 % (39.0-77.0); PLATELET COUNT 253 10^3/UL (140-415); RED BLOOD COUNT 4.27 10^6/ul (4.70-6.10); RED CELL DISTRIBUTION WIDTH 12.8 % (11.5-14.5)
[2019-03-14 07:59] LABS: ANION GAP 7 (5-13); BLOOD UREA NITROGEN 7 mg/dl (7-20); CALCIUM 7.8 mg/dl (8.4-10.2); CARBON DIOXIDE 26 mmol/L (21-31); CHLORIDE 100 mmol/L (97-110); CREATININE 0.67 mg/dl (0.61-1.24); Estimated GFR > 60 mL/min (>60); GLUCOSE 109 mg/dl (70-220); POTASSIUM 3.9 mmol/L (3.5-5.1); SODIUM 133 mmol/L (135-144)
[2019-03-14 08:02] LABS: ALANINE AMINOTRANSFERASE 32 IU/L (13-69); ALBUMIN 2.7 g/dl (3.3-4.9); ALKALINE PHOSPHATASE 83 IU/L (42-121); ASPARTATE AMINO TRANSFERASE 27 IU/L (15-46); BILIRUBIN,INDIRECT 1.1 mg/dl (0-1.1); BILIRUBIN,TOTAL 1.1 mg/dl (0.2-1.3); TOTAL PROTEIN 5.4 g/dl (6.1-8.1)
[2019-03-14] MEDS: FISH OIL 1,000 MG CAP PO (08:07)
[2019-03-14] MEDS: METOPROLOL 25 MG TAB PO (08:08)
[2019-03-14] MEDS: VANCOMYCIN 1.5 GM/NS 250 ML 250 ML IVPB ×2 (08:22→23:42)
[2019-03-14] MEDS: [UNRECOGNIZED DRUG - OTHER] XX ×2 (09:00→17:00)
[2019-03-14] MEDS: ACETAMINOPHEN 325 MG TAB PO (15:59)
[2019-03-14] MEDS ORDERED: GUAIFENESIN/DM 5ML CUP PO (17:00)
[2019-03-14] MEDS: ADENOSINE 6 MG INJ IV (17:05)
[2019-03-14 18:08] LABS: MAGNESIUM 1.7 mg/dl (1.7-2.5)
[2019-03-14 18:20] LABS: TROPONIN-I 0.013 ng/ml (0.000-0.120)
[2019-03-14] MEDS: COLCHICINE 0.6 MG CAP PO (20:34)
[2019-03-14] MEDS: POTASSIUM CHLORIDE (SR) 10 MEQ TAB PO (20:34)
[2019-03-14] MEDS: MAGNESIUM SULFATE 3 GM in DEXTROSE 5% 100 ML IVPB (20:35)
[2019-03-14] MEDS: METOPROLOL 50 MG TAB PO (20:36)
[2019-03-15] MEDS: [UNRECOGNIZED DRUG - OTHER] XX ×3 (00:10→16:25)
[2019-03-15] MEDS: ACETAMINOPHEN 325 MG TAB PO ×2 (00:15→20:28)
[2019-03-15] MEDS: CEFEPIME 2GM/50 ML (PMX) 50 ML IVPB (06:28)
[2019-03-15 07:10] LABS: ADD MAN DIFF? NO
[2019-03-15 07:14] LABS: WHITE BLOOD COUNT 10.1 10^3/ul (4.8-10.8)
[2019-03-15 07:14] LABS: BASOPHIL # 0.1 10^3/ul (0.0-0.1); BASOPHILS % 0.8 % (0.0-2.0); EOSINOPHILS # 0.2 10^3/ul (0.0-0.5); EOSINOPHILS % 1.5 % (0.0-7.0); HEMOGLOBIN 13.2 g/dl (14.0-18.0); LYMPHOCYTES # 1.2 10^3/ul (0.8-2.9); LYMPHOCYTES % 12.1 % (15.0-51.0); MEAN CORPUSCULAR HEMOGLOBIN 29.3 pg (29.0-33.0); MEAN CORPUSCULAR VOLUME 88.7 fl (82.0-101.0); MONOCYTE # 0.8 10^3/ul (0.3-0.9); MONOCYTES % 7.8 % (0.0-11.0); NEUTROPHIL # 7.8 10^3/ul (1.6-7.5); NEUTROPHILS % 77.5 % (39.0-77.0); PLATELET COUNT 256 10^3/UL (140-415); RED BLOOD COUNT 4.51 10^6/ul (4.70-6.10); RED CELL DISTRIBUTION WIDTH 12.8 % (11.5-14.5)
[2019-03-15] MEDS: INSULIN ASPART [NOVOLOG] 3 ML PEN SC ×4 (07:25→21:12)
[2019-03-15 07:34] LABS: ANION GAP 9 (5-13); BLOOD UREA NITROGEN 9 mg/dl (7-20); CALCIUM 8.3 mg/dl (8.4-10.2); CARBON DIOXIDE 23 mmol/L (21-31); CHLORIDE 103 mmol/L (97-110); CREATININE 0.57 mg/dl (0.61-1.24); Estimated GFR > 60 mL/min (>60); GLUCOSE 116 mg/dl (70-220); SODIUM 135 mmol/L (135-144)
[2019-03-15 07:36] LABS: MAGNESIUM 2.4 mg/dl (1.7-2.5)
[2019-03-15 07:40] LABS: ALANINE AMINOTRANSFERASE 62 IU/L (13-69); ALBUMIN 3.3 g/dl (3.3-4.9); ALBUMIN/GLOBULIN RATIO 1.06; ALKALINE PHOSPHATASE 139 IU/L (42-121); ANION GAP 10 (5-13); ASPARTATE AMINO TRANSFERASE 65 IU/L (15-46); BILIRUBIN,INDIRECT 0.9 mg/dl (0-1.1); BILIRUBIN,TOTAL 0.9 mg/dl (0.2-1.3); BLOOD UREA NITROGEN 8 mg/dl (7-20); CALCIUM 8.2 mg/dl (8.4-10.2); CARBON DIOXIDE 23 mmol/L (21-31); CHLORIDE 105 mmol/L (97-110); CREATININE 0.51 mg/dl (0.61-1.24); Estimated GFR > 60 mL/min (>60); GLUCOSE 114 mg/dl (70-220); POTASSIUM 4.1 mmol/L (3.5-5.1); SODIUM 138 mmol/L (135-144); TOTAL PROTEIN 6.4 g/dl (6.1-8.1)
[2019-03-15 07:46] LABS: TROPONIN-I 0.012 ng/ml (0.000-0.120)
[2019-03-15] MEDS: METOPROLOL 50 MG TAB PO ×3 (08:14→20:22)
[2019-03-15] MEDS: VANCOMYCIN 1.5 GM/NS 250 ML 250 ML IVPB (08:18)
[2019-03-15] MEDS: FISH OIL 1,000 MG CAP PO (08:18)
[2019-03-15] MEDS: COLCHICINE 0.6 MG CAP PO ×2 (08:18→20:22)
[2019-03-15] MEDS: LEVOFLOXACIN 500 MG TAB PO (12:20)
[2019-03-15] MEDS: METOPROLOL 5 MG INJ IV (17:21)
[2019-03-15] MEDS: MAGNESIUM OXIDE 400 MG TAB PO (20:22)
[2019-03-16] MEDS: [UNRECOGNIZED DRUG - OTHER] XX ×3 (01:00→15:31)
[2019-03-16] MEDS: LEVOFLOXACIN 500 MG TAB PO (06:33)
[2019-03-16 06:37] LABS: ADD MAN DIFF? NO
[2019-03-16 06:47] LABS: WHITE BLOOD COUNT 6.6 10^3/ul (4.8-10.8)
[2019-03-16 06:47] LABS: BASOPHIL # 0.1 10^3/ul (0.0-0.1); BASOPHILS % 0.9 % (0.0-2.0); EOSINOPHILS # 0.1 10^3/ul (0.0-0.5); HEMATOCRIT 37.5 % (42.0-52.0); HEMOGLOBIN 12.9 g/dl (14.0-18.0); LYMPHOCYTES # 1.1 10^3/ul (0.8-2.9); LYMPHOCYTES % 16.3 % (15.0-51.0); MEAN CORPUSCULAR HEMOGLOBIN 29.8 pg (29.0-33.0); MEAN CORPUSCULAR HGB CONC 34.4 g/dl (32.0-37.0); MEAN CORPUSCULAR VOLUME 86.6 fl (82.0-101.0); MEAN PLATELET VOLUME 12.6 fl (7.4-10.4); MONOCYTE # 0.6 10^3/ul (0.3-0.9); MONOCYTES % 9.3 % (0.0-11.0); NEUTROPHIL # 4.7 10^3/ul (1.6-7.5); NEUTROPHILS % 71.2 % (39.0-77.0); PLATELET COUNT 295 10^3/UL (140-415); RED BLOOD COUNT 4.33 10^6/ul (4.70-6.10); RED CELL DISTRIBUTION WIDTH 12.5 % (11.5-14.5)
[2019-03-16 07:08] LABS: ANION GAP 8 (5-13); BLOOD UREA NITROGEN 9 mg/dl (7-20); CALCIUM 8.4 mg/dl (8.4-10.2); CARBON DIOXIDE 27 mmol/L (21-31); CHLORIDE 102 mmol/L (97-110); CREATININE 0.65 mg/dl (0.61-1.24); Estimated GFR > 60 mL/min (>60); GLUCOSE 112 mg/dl (70-220); INR 1.23; POTASSIUM 3.8 mmol/L (3.5-5.1); PROTIME 15.6 Sec (11.9-14.9); PT RATIO 1.2; SODIUM 137 mmol/L (135-144)
[2019-03-16 07:16] LABS: PHOSPHORUS 3.2 mg/dl (2.5-4.9)
[2019-03-16] MEDS: INSULIN ASPART [NOVOLOG] 3 ML PEN SC ×4 (07:25→20:58)
[2019-03-16] MEDS ORDERED: POTASSIUM CHLORIDE 20 MEQ POWDER FOR ORAL SOLN PO (09:00)
[2019-03-16] MEDS: COLCHICINE 0.6 MG CAP PO ×2 (09:54→20:54)
[2019-03-16] MEDS: MAGNESIUM OXIDE 400 MG TAB PO ×2 (09:54→20:54)
[2019-03-16] MEDS: FISH OIL 1,000 MG CAP PO (09:54)
[2019-03-16] MEDS: METOPROLOL 50 MG TAB PO ×2 (09:55→20:55)
[2019-03-16] MEDS: AMIODARONE 200 MG TAB PO ×2 (15:31→20:54)
[2019-03-16] MEDS: ENOXAPARIN 40 MG/0.4 ML SYG SC (21:10)
[2019-03-17] MEDS: [UNRECOGNIZED DRUG - OTHER] XX ×2 (01:00→10:46)
[2019-03-17] MEDS: LEVOFLOXACIN 500 MG TAB PO (06:10)
[2019-03-17 06:52] LABS: ADD MAN DIFF? NO
[2019-03-17 07:00] LABS: WHITE BLOOD COUNT 6.7 10^3/ul (4.8-10.8)
[2019-03-17 07:00] LABS: BASOPHIL # 0.1 10^3/ul (0.0-0.1); BASOPHILS % 1.2 % (0.0-2.0); EOSINOPHILS # 0.1 10^3/ul (0.0-0.5); EOSINOPHILS % 1.8 % (0.0-7.0); HEMATOCRIT 36.4 % (42.0-52.0); HEMOGLOBIN 12.2 g/dl (14.0-18.0); LYMPHOCYTES # 1.4 10^3/ul (0.8-2.9); LYMPHOCYTES % 21.5 % (15.0-51.0); MEAN CORPUSCULAR HEMOGLOBIN 29.1 pg (29.0-33.0); MEAN CORPUSCULAR HGB CONC 33.5 g/dl (32.0-37.0); MEAN CORPUSCULAR VOLUME 86.9 fl (82.0-101.0); MEAN PLATELET VOLUME 12.2 fl (7.4-10.4); MONOCYTE # 0.6 10^3/ul (0.3-0.9); MONOCYTES % 8.4 % (0.0-11.0); NEUTROPHIL # 4.5 10^3/ul (1.6-7.5); NEUTROPHILS % 66.7 % (39.0-77.0); PLATELET COUNT 333 10^3/UL (140-415); RED BLOOD COUNT 4.19 10^6/ul (4.70-6.10); RED CELL DISTRIBUTION WIDTH 12.4 % (11.5-14.5)
[2019-03-17 07:23] LABS: ANION GAP 7 (5-13); Estimated GFR > 60 mL/min (>60)
[2019-03-17 07:24] LABS: BLOOD UREA NITROGEN 10 mg/dl (7-20); CALCIUM 8.4 mg/dl (8.4-10.2); CARBON DIOXIDE 25 mmol/L (21-31); CHLORIDE 102 mmol/L (97-110); CREATININE 0.55 mg/dl (0.61-1.24); GLUCOSE 102 mg/dl (70-220); POTASSIUM 3.6 mmol/L (3.5-5.1); SODIUM 134 mmol/L (135-144)
[2019-03-17] MEDS: INSULIN ASPART [NOVOLOG] 3 ML PEN SC ×2 (07:25→12:44)
[2019-03-17] MEDS: MAGNESIUM OXIDE 400 MG TAB PO (08:37)
[2019-03-17] MEDS: FISH OIL 1,000 MG CAP PO (08:37)
[2019-03-17] MEDS: METOPROLOL 50 MG TAB PO (08:37)
[2019-03-17] MEDS: COLCHICINE 0.6 MG CAP PO (08:37)
[2019-03-17] MEDS: AMIODARONE 200 MG TAB PO (08:38)
[2019-03-17] MEDS: ENOXAPARIN 40 MG/0.4 ML SYG SC (08:46)
[2019-03-17] MEDS ORDERED: AMOXICILLIN/CLAV 875 MG TAB PO (21:00)
== END 2019-03-17 15:25 | disposition home or self-care (01) | DRG 854 ==
LOC: E/R 15:51 → TEL 03-12 07:15 → PP2 17:57
PROC: 0FT44ZZ Resection of Gallbladder, Percutaneous Endoscopic Approach (ICD-10-PCS; principal; 2019-03-12 11:00)
DX: A41.9 Sepsis, unspecified organism (principal); T85.628A Displacement of other specified internal prosthetic devices, implants and grafts, initial encounter; K81.0 Acute cholecystitis; I47.1 Supraventricular tachycardia; I31.3 Pericardial effusion (noninflammatory); J98.11 Atelectasis; J90 Pleural effusion, not elsewhere classified; K81.1 Chronic cholecystitis; Q63.1 Lobulated, fused and horseshoe kidney; M06.9 Rheumatoid arthritis, unspecified; L40.9 Psoriasis, unspecified; I10 Essential (primary) hypertension
CPT/HCPCS: 36415; 71045; 74177; 80048; 80053; 80061; 80076; 80202; 81001; 82565; 82962; 83036; 83605; 83735; 84100; 84439; 84443; 84484; 84520; 85025; 85610; 85730; 87040-91; 87070; 87081; 88304; 93005; 93308; 93970; 94664; 96365; 96368; 99285-25